=== PATIENT | female | born 1960 | race Caucasian/White ===

== ENCOUNTER → 2017-10-17 | Outpatient (CLI) | payer MEDICAID ==
--- NOTE | 2017-10-17 20:43 | XR ---
EXAMINATION TYPE: XR lumbar spine 2 or 3V DATE OF EXAM: 10/17/2017 CLINICAL HISTORY: Generalized low back pain with spasm. TECHNIQUE: Frontal and lateral images of the lumbar spine are obtained. COMPARISON: None FINDINGS: There are 5 lumbar type vertebral bodies identified. The lumbar spine shows straightened alignment without evidence of acute fracture or dislocation. Vertebral body heights and disk space he ights are within normal limits. No significant spurring is seen. The overlying soft tissue appears u nremarkable. IMPRESSION: Straightening of lumbar spine otherwise unremarkable study.
== END | disposition home or self-care (01) ==
LOC: RADXRMAIN 16:57
PROVIDERS: ATTEND Nurse Practitioner Acute Care
DX: M43.8X6 Other specified deforming dorsopathies, lumbar region (principal)
CPT/HCPCS: 72100

== ENCOUNTER 2022-02-17 10:26 | Emergency (ER) | payer OTHER, MEDICAID ==
[2022-02-17 10:40] VITALS: BP 151/83; PULSE 90; RESP 20; TEMP 98.4
[2022-02-17] MEDS ORDERED: KETOROLAC 15 MG/ML 1 ML VIAL IM STA (11:19)
--- NOTE | 2022-02-17 11:24 | ED ---
Fall HPI - General Chief Complaint: Fall Stated Complaint: [facility] - fall Time Seen by Provider: 02/17/22 11:06 Source: patient, RN notes reviewed Mode of arrival: ambulatory - History of Present Illness Initial Comments: Patient is a 61-year-old female presenting to the emergency room after getting wrapped up in oxygen tubing at work causing her to fall to the ground. She reports falling to the ground onto her right upper and lower extremity with pain in her right elbow, right shoulder, and right knee at this time. She denies any range of motion impairment, injury to other extremities, head trauma, loss of consciousness, headache, dizziness, or weakness. She has a past medical history significant for asthma. - Related Data Allergies Allergy/AdvReac Type Severity Reaction Status Date / Time Penicillins Allergy Rash/Hives Verified 02/17/22 10:40 Sulfa (Sulfonamide Allergy Rash/Hives Verified 02/17/22 10:40 Antibiotics) Review of Systems ROS Statement: Those systems with pertinent positive or pertinent negative responses have been documented in the HPI. ROS Other: All systems not noted in ROS Statement are negative. Past Medical History Past Medical History: Asthma History of Any Multi-Drug Resistant Organisms: None Reported Past Surgical History: No Surgical Hx Reported Past Psychological History: No Psychological Hx Reported Smoking Status: Never smoker Past Alcohol Use History: Occasional Past Drug Use History: None Reported General Exam General appearance: alert, in no apparent distress Head exam: Present: atraumatic, normocephalic, normal inspection Eye exam: Present: normal appearance, PERRL, EOMI. Absent: scleral icterus, conjunctival injection, periorbital swelling ENT exam: Present: normal exam, mucous membranes moist Neck exam: Present: normal inspection, full ROM Respiratory exam: Absent: respiratory distress, accessory muscle use Cardiovascular Exam: Present: regular rate GI/Abdominal exam: Absent: distended Right Shoulder Exam: Present: full ROM, tenderness. Absent: swelling, ecchymosis, deformity, crepitus, dislocation, erythema, tenderness over AC joint Upper Arm exam: Present: normal inspection, full ROM, tenderness. Absent: swelling, abrasion, laceration, ecchymosis, deformity, crepidus, dislocation Elbow exam: Present: normal inspection, full ROM, tenderness. Absent: swelling, abrasion, laceration, ecchymosis, deformity, crepitus, dislocation, erythema Forearm Wrist exam: Present: normal inspection, full ROM. Absent: tenderness, swelling, abrasion, laceration, ecchymosis, deformity, crepitus, dislocation, erythema Vascular: Absent: vascular compromise Right Knee exam: Present: full ROM, tenderness, effusion (Likely chronic). Absent: abrasion, laceration, ecchymosis, deformity, crepitus, dislocation, erythema Neurovascular tendon exam: Present: no vascular compromise Gait: observed and limited by pain Back exam: Present: normal inspection Neurological exam: Present: alert, oriented X3, CN II-XII intact Psychiatric exam: Present: normal affect, normal mood Skin exam: Present: warm, dry, intact, normal color. Absent: rash Course Vital Signs 02/17/22 10:37 Temperature 98.4 F Pulse Rate 90 Respiratory 20 Rate Blood Pressure 151/83 O2 Sat by Pulse 96 Oximetry Medical Decision Making - Medical Decision Making 61-year-old female presenting after a fall due to oxygen tubing at work today with pain to her right upper extremity and right knee after landing on both areas, no head trauma or loss of consciousness. No indication for CT of the brain. No indication for laboratory studies. Will obtain x-ray of right shoulder, right elbow along with right knee. Will give Toradol IM for pain and monitor response. X-ray of the right elbow, right knee and right shoulder image reviewed by myself showing no evidence of fracture or dislocation to shoulder, knee or elbow. Pain level stable with IM Toradol. Will discharge home in stable condition with conservative therapy. Will keep off work for 24 hours to allow for adequate rest. Case discussed with Dr. Richardson. - Radiology Data Radiology results: report reviewed X-ray right knee complete impression by radiologist there is no acute fracture o r dislocation. Tricompartment joint spaces appear within normal limits. Overlying soft tissue appears unremarkable. X-ray right shoulder complete impression by radiologist there is no acute fracture or dislocation. The acromioclavicular and chlamydia are humeral joint spaces appear mildly narrowed. X-ray right elbow complete impression by radiologist there is no acute fracture or dislocation of the elbow. No abnormal fat pad signs are seen. Disposition Clinical Impression: Fall Disposition: HOME SELF-CARE Condition: Stable Instructions (If sedation given, give patient instructions): Fall Prevention (ED) Additional Instructions: Please utilize [id number] Tylenol or Motrin as needed for pain. Apply ice for the first 48 hours to injured joints as needed may apply heat after initial 48 hours. To notify for greater than 20 minute increments. Please return to the Emergency Department if symptoms worsen or any other concerns. Is patient prescribed a controlled substance at d/c from ED?: No Referrals: Oren Barbour DO [Primary Care Provider] - 1-2 days Time of Disposition: 12:02
--- NOTE | 2022-02-17 11:52 | XR ---
EXAMINATION TYPE: XR knee complete RT DATE OF EXAM: 02/17/2022 CLINICAL HISTORY: pain TECHNIQUE: Three views of the right knee are obtained. COMPARISON: None. FINDINGS: There is no acute fracture/dislocation. The tri-compartment joint spaces appear within no rmal limits. The overlying soft tissue appears unremarkable. IMPRESSION: There is no acute fracture or dislocation.ICD 10 NO FRACTURE, INITIAL EVALUATION
--- NOTE | 2022-02-17 11:54 | XR ---
EXAMINATION TYPE: XR shoulder complete RT DATE OF EXAM: 02/17/2022 CLINICAL HISTORY: pain TECHNIQUE: Three views of the right shoulder are obtained. COMPARISON: None FINDINGS: There is no acute fracture/dislocation evident. The acromioclavicular and glenohumeral joseph int spaces appear mildly narrowed. The visualized ribs are intact and unremarkable. IMPRESSION: 1. There is no acute fracture or dislocation. ICD 10 NO FRACTURE, INITIAL EVALUATION
--- NOTE | 2022-02-17 11:55 | XR ---
EXAMINATION TYPE: XR elbow complete RT DATE OF EXAM: 02/17/2022 CLINICAL HISTORY: pain TECHNIQUE: Frontal, lateral and oblique images of the right elbow are obtained. COMPARISON: None. FINDINGS: There is no acute fracture/dislocation evident of the elbow. No abnormal fat pad signs ar e seen. The overlying soft tissue appears unremarkable. IMPRESSION: There is no acute fracture or dislocation of the elbow. ICD 10 NO FRACTURE, INITIAL EVALUATION
== END 2022-02-17 12:27 | disposition home or self-care (01) ==
LOC: EC 10:26
DX: M25.511 Pain in right shoulder (principal); J45.909 Unspecified asthma, uncomplicated; Z88.0 Allergy status to penicillin; Z88.2 Allergy status to sulfonamides; Y30.XXXA Falling, jumping or pushed from a high place, undetermined intent, initial encounter
CPT/HCPCS: 73030; 73080; 73562; 99284; 96372; J1885